=== PATIENT | male | born 1995 | race Caucasian/White ===

== ENCOUNTER 2023-04-18 13:54 | Outpatient (CLI) | payer OTHER, SELFPAY ==
--- NOTE | 2023-04-18 14:05 | ECHO_ITS ---
Patient Info Name: Gibson Mulligan Age: 27 years : 1995 Gender: Male Ht: 72 in Wt: 250 lbs BSA: 2.44 m2 HR: 93 bpm BP: 132 / 95 mmHg Heart Rhythm: Tachycardia Technical Quality: Good Exam Date: 04/18/2023 1:48 PM Exam Location: [facility] Patient Status: Outpatient Admit Date: 04/18/2023 Staff Ordering Physician: Antwan Zuniga MD Flight Control Manager: Jian Velasquez RDCS Attending Provider: Antwan Zuniga MD Referring Physician: Efrain BAHENA; Exam Type: CA echo doppler color flow Study Info Indications - other abn of heart beat Complete two-dimensional, color flow and Doppler transthoracic echocardiogram is performed. Summary 1. Complete two-dimensional, color flow and Doppler transthoracic echocardiogram is performed. 2. Left ventricular chamber dimension is normal. 3. Left ventricular systolic function is normal, estimated at 55-60%. 4. There is mild concentric increased left ventricular wall thickness. 5. The left ventricular diastolic function is grade I diastolic dysfunction. 6. E/e' 6 is not elevated. 7. There is mild aortic valve sclerosis. 8. No pulmonary hypertension, estimated pulmonary arterial systolic pressure is 13 mmHg. Left Ventricle E/e' 6 is not elevated. Left ventricular chamber dimension is normal. Left ventricular systolic function is normal, estimated at 55-60%. There is mild concentric increased left ventricular wall thickness. The left ventricular diastolic function is grade I diastolic dysfunction. Right Ventricle Right ventricular systolic function is normal and with normal TAPSE 2.3 cm. Right ventricular chamber dimension is normal. Left Atria Left atrial chamber dimension is normal. Right Atria Right atrial chamber dimension is normal. Aortic Valve The aortic valve is trileaflet. There is mild aortic valve sclerosis. There is no aortic valve stenosis. There is trace aortic valve regurgitation. Pulmonic Valve There is no pulmonic regurgitation. Mitral Valve There is no mitral valve stenosis. There is no mitral valve regurgitation. Tricuspid Valve There is no tricuspid valve regurgitation. No pulmonary hypertension, estimated pulmonary arterial systolic pressure is 13 mmHg. Pericardium/Pleural There is no pericardial effusion. Inferior Vena Cava Normal inferior vena cava with >50% collapse upon inspiration consistent with normal right atrial pressure, 5 mmHg. Aorta The aortic root size at the sinus of Valsalva is normal. Left Ventricular Outflow Tract Name Value Normal LVOT 2D LVOT Diameter 2.2 cm LVOT Doppler LVOT Peak Velocity 63 cm/s LVOT Peak Gradient 2 mmHg LVOT Mean Gradient 1 mmHg LVOT VTI 13 cm LVOT VTI/AV VTI Ratio 0.5 LVOT Stroke Volume 48 ml Pulmonic Valve Name Value Normal RVOT Doppler R
== END 2023-04-18 13:55 | disposition home or self-care (01) ==
LOC: CHSIMG 13:58
PROVIDERS: PCP Family Medicine; Visit Provider Family Medicine
DX: R00.8 Other abnormalities of heart beat (principal); I35.8 Other nonrheumatic aortic valve disorders
CPT/HCPCS: 93306